=== PATIENT | female | born 2000 | race Caucasian/White ===

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

== ENCOUNTER 2020-04-06 16:47 | Emergency (ER) | payer OTHER ==
[2020-04-06 16:54] VITALS: BP 122/63; PULSE 77; TEMP 98.1; BMI 31.0
--- NOTE | 2020-04-06 17:23 | PDOC ---
History of Present Illness - General Chief Complaint: Foreign Body (FB) Stated Complaint: PERSONAL Time Seen by Provider: 04/06/20 16:57 History Source: Patient - History of Present Illness Timing/Duration: reports: constant Past History - Medical History Allergies/Adverse Reactions: Allergies Allergy/AdvReac Type Severity Reaction Status Date / Time No Known Allergies Allergy Verified 04/06/20 16:49 Home Medications: Ambulatory Orders NK [No Known Home Medication] 03/03/18 Cardiac Disorders: Yes (MURMUR) COPD: No - Reproductive History Is Patient Now?: No - Psycho-Social/Smoking History Smoking History: Current every day smoker Have you smoked in the past 12 months: Yes Number of Cigarettes Smoked Daily: 0 Information on smoking cessation initiated: Yes - Substance Abuse Hx (Audit-C & DAST Scrn) How often the patient has a drink containing alcohol: Never Score: In Men: 4 or > Positive; In Women: 3 or > Positive: 0 Screen Result (Pos requires Nsg. Audit-10AR): Negative In the last yr the pt used illegal drug/Rx for NonMed reason: Yes Score: Yes response is considered Positive: 1 Screen Result (Positive result requires Nsg. DAST-10): Positive Review of Systems - Review of Systems ABD/GI: No: Nausea, Vomiting, Abdominal cramping : No: Dysuria, Discharge *Physical Exam - Vital Signs Last Vital Signs Temp Pulse Resp BP Pulse Ox 98.1 F 77 18 122/63 100 04/06/20 16:49 04/06/20 16:49 04/06/20 16:49 04/06/20 16:49 04/06/20 16:49 - Physical Exam General Appearance: Yes: Appropriately Dressed. No: Apparent Distress HEENT: positive: Normal Voice Neck: positive: Supple Respiratory/Chest: negative: Respiratory Distress Female Pelvic Exam: positive: other (condom seen in vault, IUD string noted at os) Gastrointestinal/Abdominal: positive: Soft. negative: Tender, Distended, Guarding, Rebound Integumentary: positive: Dry, Warm Neurologic: positive: Fully Oriented, Alert, Normal Mood/Affect Medical Decision Making - Medical Decision Making 04/06/20 17:15 20-year-old female, here to have condom removed from her vaginal vault. States condom got stuck during sexual intercourse last night. States while attempting to remove condom, she accidentally pulled on her IUD string and now concerned her IUD might totally be removed from her cervix. No vaginal discharge, abdominal pain, dysuria, nausea or vomiting. On exam, condom was seen and easily removed with alligator forceps. IUD string visualized at os. Dc w/ reassurance Discharge - Discharge Information Problems reviewed: Yes Clinical Impression/Diagnosis: Foreign body (FB) in soft tissue Condition: Good Disposition: HOME - Follow up/Referral - Patient Discharge Instructions Additional Instructions: Your IUD remains in place Return to ER as needed - Post Discharge Activity
--- OUTSIDE RECORDS SUMMARY | 2020-04-06 17:41 | XMS ---
:[address] [facility] Support Name Relationship Address Phone UZMA Unavailable Unavailable Unavailable KRISTIN SEGURA MOTHER [address] [place] [address] Re-disclosure Warning The records that you are about to access may contain information from federally- assisted alcohol or drug abuse programs. If such information is present, then the following federally mandated warning applies: This information has been disclosed to you from records protected by federal confidentiality rules (42 CFR part 2). The federal rules prohibit you from making any further disclosure of this information unless further disclosure is expressly permitted by the written consent of the person to whom it pertains or as otherwise permitted by 42 CFR part 2. A general authorization for the release of medical or other information is NOT sufficient for this purpose. The Federal rules restrict any use of the information to criminally investigate or prosecute any alcohol or drug abuse patient.The records that you are about to access may contain highly sensitive health information, the redisclosure of which is protected by Article 27-F of the [facility] Public Health law. If you continue you may haveaccess to information: Regarding HIV / AIDS; Provided by facilities licensed or operated by the [facility] Office of Mental Health; or Provided by the [facility] Office for People With Developmental Disabilities. If such information is present, then the following [facility] mandated warning applies: This information has been disclosed to you from confidential records which are protected by state law. State law prohibits you from making any further disclosure of this information without the specific written consent of the person to whom it pertains, or as otherwise permitted by law. Any unauthorized further disclosure in violation of state law may result in a fine or fdc sentence or both. A general authorization for the release of medical or other information is NOT sufficient authorization for further disclosure. Insurance Providers Payer name Policy type Policy ID Covered Covered libertarian's Policy P marina / Coverage libertarian ID relationship to Shankar Inf ormation type shankar [employer] [id number] SP [id number] MEDICAID [id number] SP [id number]
== END 2020-04-06 17:39 | disposition home or self-care (01) ==
LOC: JERFT 16:47
DX: M79.5 Residual foreign body in soft tissue (principal)
CPT/HCPCS: 99282-25

== ENCOUNTER 2022-09-22 14:20 | Emergency (ER) | payer OTHER ==
[2022-09-22] MEDS ORDERED: DEXAMETHASONE SOD PHOSPHATE 10 MG/1 ML VIAL PO ONE (14:32)
[2022-09-22] MEDS ORDERED: IBUPROFEN 600 MG TABLET (FP) PO ONE ×2 (14:32→14:34)
[2022-09-22] MEDS ORDERED: DEXAMETHASONE SOD PHOSPHATE/PF 10 MG/ML SDV ONE (14:34)
[2022-09-22 15:18] VITALS: BP 132/60; PULSE 90; RESP 15; TEMP 97.7; BMI 28.0
== END 2022-09-22 14:51 | disposition home or self-care (01) ==
LOC: FER 14:20
DX: J02.9 Acute pharyngitis, unspecified (principal); R09.81 Nasal congestion; R05.1 Acute cough; H92.03 Otalgia, bilateral; Z20.822 Contact with and (suspected) exposure to COVID-19
CPT/HCPCS: 0241U-QW; 99283-25; J1100

== ENCOUNTER 2023-01-21 18:15 | Emergency (ER) | payer OTHER ==
[2023-01-21 18:28] VITALS: BP 129/79; PULSE 88; RESP 18; TEMP 98.3; BMI 28.8
[2023-01-21] MEDS ORDERED: CYCLOBENZAPRINE HCL 10 MG TABLET (FP) PO ONE (19:39)
[2023-01-21] MEDS ORDERED: ACETAMINOPHEN 500 MG TABLET (FP) PO ONE (19:39)
[2023-01-21] MEDS ORDERED: IBUPROFEN 600 MG TABLET (FP) PO ONE ×2 (19:39→19:42)
[2023-01-21] MEDS ORDERED: ACETAMINOPHEN 500 MG TABLET (FP) ONE (19:42)
[2023-01-21] MEDS ORDERED: CYCLOBENZAPRINE HCL 10 MG TABLET (FP) ONE (19:42)
== END 2023-01-21 20:42 | disposition home or self-care (01) ==
LOC: JERFT 18:15 → JER 18:15 → JERFT 20:42
DX: M54.6 Pain in thoracic spine (principal); M54.2 Cervicalgia; M25.561 Pain in right knee; V79.9XXA Bus occupant (driver) (passenger) injured in unspecified traffic accident, initial encounter
CPT/HCPCS: 73560-TC-RT-FY; 99283-25